=== PATIENT | male | born 1975 ===

== ENCOUNTER 2018-07-12 13:28 | Inpatient (IN) | payer OTHER ==
[2018-07-12 13:45] LABS: Base Excess (BEa) -3.8 mEq/L (-2.0 to +3.0); CO2 Tension 28.8 mmHg (35.0-45.0); Hemoglobin (Hb) 13.5 g/dL (14.0-18.0); O2 Tension (PaO2) 500.7 mmHg (80.0-100.0); pH, Arterial 7.44 (7.35-7.45)
[2018-07-12 13:46] LABS: Analyzer IN Cardio ER; Carboxyhemoglobin (COHb) 0.3 gm% (0.0-3.0); Potassium - ABG Lab 4.4 mmol/L (3.70-5.30); Puncture Site RRA
[2018-07-12 13:53] LABS: #Lymphocytes 0.4 thou/uL (1.20-3.40); #Monocytes 0.4 thou/uL (0.11-0.59); %Eosinophils 0.1 % (0.0-10.0); %Lymphocytes 3.8 % (21.0-51.0); %Monocytes 4.4 % (0.0-10.0); %Neutrophils 91.7 % (42.0-75.0); Hemoglobin 13.2 g/dL (14.0-18.0); Mean Corpuscular HGB CONC 35.5 g/dL (32.0-36.0); Mean Corpuscular Hemoglobin 34.1 pg (27.0-31.0); Mean Corpuscular Volume 96.2 fL (78.0-98.0); Mean Platelet Volume 7.7 fL (7.4-10.4); Platelet Count 142 thou/uL (130-400); RBC Distribution Width 12.2 % (11.5-14.5); Red Blood Cell (RBC) Count 3.88 mill/uL (4.70-6.10); White Blood Cell (WBC) Count 9.8 thou/uL (4.8-10.8)
[2018-07-12 13:59] LABS: ALT (SGPT) 142 U/L (8-55); AST (SGOT) 91 U/L (5-34); Albumin 4.3 g/dL (3.5-5.0); Alkaline Phosphatase 78 U/L (40-150); Anion Gap 13 mmol/L (10-20); BUN (Urea Nitrogen) 12 mg/dL (8.9-20.6); Bilirubin, Total 0.8 mg/dL (0.2-1.2); Calc. Creatinine Clearance 0 mL/min (70-130); Calcium 8.4 mg/dL (7.8-10.44); Carbon Dioxide 20 mmol/L (22-29); Chloride 105 mmol/L (98-107); Estimated GFR-MDRD Greater than 90; Globulin 2.3 g/dL (2.4-3.5); Glucose 121 mg/dL (70-105); Potassium 4.2 mmol/L (3.5-5.1); Protein, Total 6.6 g/dL (6.0-8.3); Sodium 134 mmol/L (136-145)
[2018-07-12 14:00] LABS: INR-International Normal Ratio 1.1
--- NOTE | 2018-07-12 14:49 | RAD ---
CHEST 1 VIEW: Date: 07/12/18 HISTORY: Chest pain. COMPARISON: None. FINDINGS: Patient is intubated with endotracheal tube tip below the clavicles. Enteric tube tip in gastric body . Defibrillator pad projects over the right hemithorax. No pneumothorax. No acute osseous abnormality. IMPRESSION: Satisfactory position of the endotracheal and enteric tubes. POS: [facility]
[2018-07-12] MEDS ORDERED: niCARdipine 20MG in NaCl 200 ML BAG IVPB PRN (15:02)
[2018-07-12] MEDS ORDERED: CCU Electrolyte Replacement 1 EACH IVPB ONE (15:02)
[2018-07-12] MEDS ORDERED: Sodium Chloride 0.9% 1,000 ML IV SCH (15:15)
[2018-07-12 15:38] VITALS: BMI 22.6
[2018-07-12] MEDS ORDERED: CCU ELECTROLYTE REPLACEMENT PROTOCOL FS PRN (15:45)
[2018-07-12] MEDS ORDERED: Potassium Phosphate 12 MMOL in Sodium Chloride 0.9% 250 ML 250 ML IV PRN (15:45)
[2018-07-12] MEDS ORDERED: Potassium Chloride 40 MEQ in Premix Bag 1 BAG IVPB PRN (15:45)
[2018-07-12] MEDS ORDERED: Potassium Chloride 20 MEQ TAB PO PRN (15:45)
[2018-07-12] MEDS ORDERED: Magnesium Oxide 400 MG TAB PO PRN ×2 (15:45)
[2018-07-12] MEDS ORDERED: Potassium Phosphate 15 MMOL in Sodium Chloride 0.9% 250 ML 250 ML IV PRN (15:45)
[2018-07-12] MEDS ORDERED: Potassium Chloride 40 MEQ in Sodium Chloride 0.9% 250 ML 250 ML IVPB PRN (15:45)
[2018-07-12] MEDS ORDERED: Magnesium 2 GM/NS 0.9% 100 ML 2 GM in Premix Bag 1 BAG IVPB PRN (15:45)
[2018-07-12] MEDS ORDERED: Potassium Phosphate 9 MMOL in Sodium Chloride 0.9% 100 ML IVPB PRN (15:45)
[2018-07-12] MEDS ORDERED: niCARdipine HCl 25 MG in Sodium Chloride 0.9% 250 ML 240 ML IVPB SCH (16:00)
--- NOTE | 2018-07-12 16:05 | PRG ---
DATE OF SERVICE: 07/12/2018 SUBJECTIVE: Mr. Morris is a 43-year-old man. He evidently has a history of alcohol abuse. He was h aving headache, nausea and vomiting overnight and was found to be obtunded this morning. EMS was act ivated. He was a GCS 3 at the scene. He was intubated. On our exam, his pupils were midposition an d fixed. Head CT demonstrated a left cerebellar hemorrhage with extensive ventricular extension and casting of the ventricular system with obstructive hydrocephalus. He was given mannitol and transfer red to [place]. A ventriculostomy was placed with the release of significant high pressure CSF th at was bloody. He has been transferred to the ICU. I have updated his family. His prognosis remain s quite guarded.
[2018-07-12] MEDS: CEFAZOLIN/Water 2 GM/20 ML SYRINGE SLOW IVP SCH ×2 (16:27→21:34)
[2018-07-12] MEDS ORDERED: CEFAZOLIN/Water 2 GM/20 ML SYRINGE SLOW IVP SCH (16:30)
--- NOTE | 2018-07-12 17:36 | OP ---
NOTE: Modifier 57 should be added to this surgery as decision to operate was made on the day I saw t he patient. 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 PROCEDURE: Placement of right frontal external ventricular drain to treat hydrocephalus. DESCRIPTION OF PROCEDURE: After informed consent was obtained from the patient's and the emerge nt nature conveyed to them, the right frontal Adriane's point was identified. Hair was clipped in thi s region and sterilely cleansed, prepared, and draped. Proper patient pause and identification was c arried out. A small incision was made. The skull was perforated with a drillbit. The dura was open ed and the ventricular catheter placed with return of bloody CSF under high pressure. This was conne cted to the Donohue bag and set to 10 cm of water. The procedure was tolerated with no apparent compl ications. He was transferred to the ICU.
[2018-07-12 19:09] LABS: Sodium 144 mmol/L (136-145)
[2018-07-12 19:16] LABS: Bilirubin Negative (Negative); Blood, Urine Negative (Negative); Clarity CLEAR (Clear); Glucose, Urine (Dipstick) Negative (Negative); Leukocyte Negative (Negative); Nitrite Negative (Negative); Protein, Urine (Dipstick) Negative (Neg-Trace); Specific Gravity, Urine 1.003 (1.002-1.036); Urobilinogen 0.2 mg/dL (0.2-1.0); pH, Urine 6.5 (5.0-9.0)
[2018-07-12 21:18] LABS: Sodium 147 mmol/L (136-145)
[2018-07-12] MEDS ORDERED: CEFAZOLIN 2 GM in Sodium Chloride 0.9% 100 ML IVPB SCH (22:00)
[2018-07-12] MEDS: Sodium Chloride 0.9% 1,000 ML IV SCH (22:43)
[2018-07-13] MEDS ORDERED: Norepinephrine 8 MG/250 ML BAG IVPB PRN (02:26)
[2018-07-13 05:23] LABS: Anion Gap 12 mmol/L (10-20); BUN (Urea Nitrogen) 11 mg/dL (8.9-20.6); Calc. Creatinine Clearance 123 mL/min (70-130); Calcium 8.6 mg/dL (7.8-10.44); Carbon Dioxide 22 mmol/L (22-29); Chloride 118 mmol/L (98-107); Estimated GFR-MDRD Greater than 90; Glucose 85 mg/dL (70-105); Potassium 3.8 mmol/L (3.5-5.1); Sodium 148 mmol/L (136-145)
[2018-07-13] MEDS: CEFAZOLIN/Water 2 GM/20 ML SYRINGE SLOW IVP SCH ×2 (05:51→14:44)
[2018-07-13] MEDS: Sodium Chloride 0.9% 1,000 ML IV SCH (05:51)
--- NOTE | 2018-07-13 06:09 | CON ---
DATE OF CONSULTATION: 07/12/2018 Facundo Morris is an unfortunate male, who is having nausea and vomiting all night. Symptoms were felt to be secondary to a stomach bug. He was awake apparently, this morning, when his left, and when she came back, he was unresponsiv e, so an ambulance arrived, he was intubated and transferred to [facility]. He had a G lasgow Coma Score of 3 on arrival. He apparently had midposition pupils at that time. He had a cere bellar hemorrhage with ventricular blood and hydrocephalus. PAST MEDICAL HISTORY: Not reportedly remarkable for history of hypertension, but he was extremely hy pertensive in the ER at [facility], I am told. Apparently on no medications prior to this. FAMILY HISTORY: Unknown. PHYSICAL EXAMINATION: VITAL SIGNS: Blood pressures in the 90s systolic, heart rate is in the 70s, respiratory rate was 10. HEENT: Pupils are midposition and reactive. Sclerae is anicteric. He had no response to sternal ru b. He had no gag. He had no corneals. LUNGS: Clear. HEART: Regular rhythm. ABDOMEN: Soft, without masses. EXTREMITIES: Without clubbing, cyanosis, or edema. He is flaccid. LABORATORY AND X-RAY FINDINGS: Sodium was 134. His urine output seemed to be increasing, so we rech ecked sodium at 1847, it was 144, and then at 2052, it is 147. Urine specific gravity was 1.003, pH of 7.44, pCO2 of 20, pO2 of 500. Coags were normal. White count 9.3, hemoglobin 13.2, platelets 142 ,000. IMPRESSION: ?hypertensive bleed with ventricular extension hydrocephalus and probable herniation. 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 This is extremely poor prognostic indicator. Surgery is following. PLAN: We will continue to follow with them as well. Critical care time 40 minutes.
[2018-07-13 08:52] LABS: pH, Arterial 7.39 (7.35-7.45)
[2018-07-13 08:53] LABS: Actual Bicarbonate (HCO3a) 25.3 mEq/L (22-28); Base Excess (BEa) 0.1 mEq/L (-2.0 to +3.0); Carboxyhemoglobin (COHb) 0.7 gm% (0.0-3.0); Hemoglobin (Hb) 13.6 g/dL (14.0-18.0); O2 Tension (PaO2) 182.6 mmHg (80.0-100.0); Potassium - ABG Lab 3.7 mmol/L (3.70-5.30)
[2018-07-13 08:54] LABS: Puncture Site RRA
[2018-07-13 09:03] LABS: #Lymphocytes 0.9 thou/uL (1.20-3.40); #Monocytes 0.3 thou/uL (0.11-0.59); #Neutrophils 5.1 thou/uL (1.40-6.50); %Basophils 0.4 % (0.0-1.0); %Eosinophils 0.3 % (0.0-10.0); %Lymphocytes 14.7 % (21.0-51.0); %Monocytes 4.6 % (0.0-10.0); Hemoglobin 12.7 g/dL (14.0-18.0); Mean Corpuscular HGB CONC 34.1 g/dL (32.0-36.0); Mean Corpuscular Hemoglobin 33.9 pg (27.0-31.0); Mean Corpuscular Volume 99.3 fL (78.0-98.0); Mean Platelet Volume 7.7 fL (7.4-10.4); Platelet Count 139 thou/uL (130-400); RBC Distribution Width 12.6 % (11.5-14.5); Red Blood Cell (RBC) Count 3.76 mill/uL (4.70-6.10); White Blood Cell (WBC) Count 6.4 thou/uL (4.8-10.8)
[2018-07-13 12:08] VITALS: TEMP 97.4
--- NOTE | 2018-07-13 13:37 | PRG ---
DATE OF SERVICE: 07/13/2018 SUBJECTIVE: Unfortunately, Mr. Morris has made no neurological progress. His pupils remain 5 mm and nonreactive. He has no corneal responses. He does not have a cough or gag and he has no movements of his extremities to noxious stimuli. He does not trigger the ventilator. He has a GCS 3T and is o n no sedation. His EVD is clotted off. He has known diabetes insipidus. Head CT this morning demon strates loss of the jacinto white interface and complete effacement of the sulci and cisterns. CT perfu tracy demonstrates no supraclinoid carotid flow. In fact, there is no flow in the right internal mcfarlane tid artery, into the petrous or cavernous carotid sections, likely indicative of include occlusion. There is no perfusion of the infratentorial structures either as the vertebral arteries did not fill intradurally nor did the carotid arteries fill intradurally. I have met with his and explained the grave prognosis here and the fact that the patient has a condition that is not compatible with li fe. They wish that we proceed with formal brain and transplant.
--- NOTE | 2018-07-13 13:58 | CT ---
CTA HEAD WITH AND WITHOUT CONTRAST WITH PERFUSION EVALUATION: Date: 07/13/18 INDICATION: History of hypertensive hemorrhage with intraventricular extension. Reportedly the patient was imaged at an outside facility; reportedly [facility] in [place], [place]. COMPARISON: None. TECHNIQUE: Multiple CTA images were obtained of the head with and without IV contrast. Perfusion images were con structed from the raw data at a separate workstation. FINDINGS: There is prominent intraventricular hemorrhage. There is a large area of intraventricular hemorrhage centered in the fourth ventricle with likely some parenchyma hemorrhage in the left cerebellar hemisp here on image 7 of series 2. This focal collection measures 4.6 cm. There is subarachnoid extension w ith hemorrhage layered within the cortical sulci and along the tentorium. There is marked effacement of the basilar cisterns. There is marked effacement of the sulci along the cerebral convexities. Ther e is loss of the normal jacinto-white differentiation. There is a ventriculostomy catheter entering thro ugh a right frontal bur hole that projects into the anterior horn of the left lateral ventricle. On the CTA images, there is no flow within the right internal carotid artery beyond the C1 level. The left internal carotid artery is diminutive in size at the level of the skull base through its petrou s, precavernous, and cavernous sections. There is very minimal flow within the very diminutive appear ing MCAs and ACAs bilaterally. No apparent flow is seen within the supervisor drying and softening. There is no apparent flow wi thin the basilar system. There is some flow within the cervical vertebral arteries that diminishes al morgan their intracranial segments. On the perfusion weighted images, there is significant reduction in the blood flow through both cereb ral hemispheres. There is diminished blood volume in all visualized segments. There is prominent hete rogeneity of the mean transit time, which is nonspecific. The mastoid air cells are clear. Paranasal sinuses are clear. IMPRESSION: 1. Prominent intraparenchymal hemorrhage within the left cerebellar hemisphere with likely fourth ve ntricular extension. Hematoma in the posterior fossa measures 4.6 cm in size. There is intraventricul ar hemorrhage extending into the third and fourth ventricles. There is subarachnoid extension with bl ood seen along the tentorium. There is effacement of the cerebral sulci, as well as the basilar ciste rns. There is loss of the normal jacinto-white differentiation. Overall, the findings are concerning for cerebral brain due to hypoperfusion. There is no appreciably perfusion within the posterior ci rculation nor within the right internal carotid artery. There is very diminutive perfusion seen withi n the left internal carotid artery at the level of the skull base through the level of the supraclino id segment of the left ICA. There is very diminutive flow within the anterior circulation of the MCA and EMETERIO segments proximally. 2. Perfusion studies are slightly limited due to the flow dynamics. There is no appreciable blood fl ow documented. The blood volume is markedly diminished within both cerebral hemispheres. 3. To confirm cerebral brain , a nuclear medicine brain study is recommended for further evaluation. Findings called to Ruben Wayne at 1239 hours on 07/13/18. CODE CR. POS: [facility]
[2018-07-13 15:29] VITALS: BP 105/64
--- NOTE | 2018-07-13 17:40 | RAD ---
RADIOGRAPH CHEST 1 VIEW: 07/13/18 at 5:32 p.m. HISTORY: 43-year-old male status post intubation. COMPARISON: 07/12/18, 2:24 p.m. FINDINGS: There are no air space densities, pulmonary edema, pneumothorax, or cardiomegaly. The lateral costop hrenic angles are sharp. Endotracheal tube distal tip is in a slightly more inferior position, now ap proximately 3.5 cm superior to the scottie. NG tube remains. The defibrillation paddle is no longer pr esent. IMPRESSION: 1. No acute cardiopulmonary findings. 2. Endotracheal tube and esophagogastric tube. alvina [] POS: [facility]
--- NOTE | 2018-07-17 15:39 | DS ---
This is Ruben Wayne PA-C, dictating for Dr. Facundo Mccarthy. HISTORY O PRESENT ILLNESS: Mr. Morris presented to [facility] with exam. A hea d CT demonstrated left cerebellar hemorrhage with extensive ventricular extension and casting of vent ricular system with obstructive hydrocephalus. His neurologic exam was GCS 3T. The EVD was replaced and the patient overnight showed no clinical radiographic signs of improvement. He was then declare d brain and soon .
== END 2018-07-13 14:38 | disposition expired | DRG 24 ==
LOC: ERS 13:28 → CCU 14:47 → CDU 07-13 14:58
PROVIDERS: ADMIT Surgery; ATTEND Surgery
PROC: 009630Z Drainage of Cerebral Ventricle with Drainage Device, Percutaneous Approach (ICD-10-PCS; principal; 2018-07-12)
DX: I61.9 Nontraumatic intracerebral hemorrhage, unspecified (principal); G91.1 Obstructive hydrocephalus; R40.2431 Glasgow coma scale score 3-8, in the field [EMT or ambulance]; W06.XXXA Fall from bed, initial encounter; F10.10 Alcohol abuse, uncomplicated; I10 Essential (primary) hypertension
CPT/HCPCS: 0042T; 12002; 36415; 70496; 71045; 80048; 80053; 81003; 82805; 85025; 85610; 85730; 93005; 93010; 94002; 94003; 96374; G8990-GO-CN; G8991-GO-CN; J2597; J7050

== ENCOUNTER 2018-07-13 14:38 | Day surgery (SDC) | payer OTHER ==
[2018-07-13] MEDS ORDERED: Levothyroxine 100 MCG SDV SLOW IVP SCH (17:00)
[2018-07-13] MEDS ORDERED: Insulin Regular 300 UNITS/3 ML VIAL IVP SCH (17:00)
[2018-07-13] MEDS ORDERED: Dextrose 50% Abboject 50 ML SYRINGE SLOW IVP SCH (17:00)
[2018-07-13] MEDS ORDERED: Norepinephrine 8 MG/0.9% NS 250 ML IVPB SCH (17:00)
[2018-07-13] MEDS ORDERED: Vasopressin 20 UNIT in Sodium Chloride 0.9% 250 ML 250 ML IV SCH (17:00)
[2018-07-13] MEDS ORDERED: Albuterol Sulfate 2.5 mg/3 ml Neb NEB PRN (17:00)
[2018-07-13] MEDS ORDERED: Levothyroxine Sodium 400 MCG in Sodium Chloride 0.9% 100 ML IVPB SCH (17:00)
[2018-07-13] MEDS ORDERED: Phenylephrine 10 MG/NS 250 ML 250 ML IVPB SCH (17:00)
[2018-07-13] MEDS ORDERED: Naloxone HCl 2 mg/2 ml Syringe IV SCH (17:00)
[2018-07-13] MEDS ORDERED: methylPREDNISolone Sod Succ 2 gm/30 ml Vial IVP SCH (17:00)
[2018-07-13] MEDS ORDERED: 1/2 NS w/KCL 20 mEq 1,000 ML IV SCH (17:15)
[2018-07-13 17:50] LABS: Actual Bicarbonate (HCO3a) 22.9 mEq/L (22-28); Base Excess (BEa) -1.8 mEq/L (-2.0 to +3.0); CO2 Tension 38.8 mmHg (35.0-45.0); O2 Tension (PaO2) 124.2 mmHg (80.0-100.0); pH, Arterial 7.39 (7.35-7.45)
[2018-07-13 17:50] LABS: #Eosinphils 0.1 thou/uL (0.0-0.7); #Lymphocytes 0.9 thou/uL (1.20-3.40); #Monocytes 0.3 thou/uL (0.11-0.59); #Neutrophils 5.7 thou/uL (1.40-6.50); %Basophils 0.4 % (0.0-1.0); %Eosinophils 0.7 % (0.0-10.0); %Monocytes 4.3 % (0.0-10.0); %Neutrophils 81.7 % (42.0-75.0); Hemoglobin 14.3 g/dL (14.0-18.0); Mean Corpuscular HGB CONC 34.3 g/dL (32.0-36.0); Mean Corpuscular Hemoglobin 34.4 pg (27.0-31.0); Mean Platelet Volume 7.6 fL (7.4-10.4); Platelet Count 129 thou/uL (130-400); RBC Distribution Width 12.8 % (11.5-14.5); Red Blood Cell (RBC) Count 4.15 mill/uL (4.70-6.10)
[2018-07-13 17:51] LABS: Calcium, Ionized 1.22 mmol/L (1.12-1.30); Carboxyhemoglobin (COHb) 0.9 gm% (0.0-3.0); Hemoglobin (Hb) 14.3 g/dL (14.0-18.0); Potassium - ABG Lab 3.4 mmol/L (3.70-5.30); Puncture Site RRA
[2018-07-13 17:57] LABS: INR-International Normal Ratio 1.1; PTT 29.7 SEC (22.9-36.1); Prothrombin Time 14.5 SEC (12.0-14.7)
[2018-07-13 18:12] LABS: ALT (SGPT) 114 U/L (8-55); AST (SGOT) 162 U/L (5-34); Albumin 3.6 g/dL (3.5-5.0); Alkaline Phosphatase 68 U/L (40-150); Anion Gap 9 mmol/L (10-20); BUN (Urea Nitrogen) 9 mg/dL (8.9-20.6); Bilirubin, Direct 0.2 mg/dL (0.1-0.3); Bilirubin, Total 0.6 mg/dL (0.2-1.2); Calc. Creatinine Clearance 0 mL/min (70-130); Calcium 8.7 mg/dL (7.8-10.44); Carbon Dioxide 23 mmol/L (22-29); Chloride 120 mmol/L (98-107); Estimated GFR-MDRD Greater than 90; Gamma GT (GGT) 603 U/L (12-64); Globulin 2.4 g/dL (2.4-3.5); Glucose 92 mg/dL (70-105); Lipase 47 U/L (8-78); Magnesium 2.2 mg/dL (1.6-2.6); Potassium 3.5 mmol/L (3.5-5.1); Sodium 148 mmol/L (136-145)
[2018-07-13 18:14] LABS: Phosphorus 1.5 mg/dL (2.3-4.7); Troponin I 0.012 ng/mL (< 0.028)
[2018-07-13] MEDS: Phytonadione 10 MG/ML AMP SLOW IVP SCH ×2 (18:30→22:25)
[2018-07-13] MEDS: Sodium Chloride 0.45% 1,000 ML IV SCH (19:04)
[2018-07-13] MEDS: Albuterol Sulfate 2.5 mg/3 ml Neb NEB SCH ×2 (19:14→23:36)
[2018-07-13 21:12] VITALS: BMI 22.6
[2018-07-13] MEDS: CEFAZOLIN 1 GM in Sodium Chloride 0.9% 100 ML IVPB SCH (22:24)
--- NOTE | 2018-07-13 22:55 | PRG ---
DATE OF SERVICE: 07/13/2018 SUBJECTIVE: Mr. Morris had a physical exam consistent with clinical brain early this morning. He underwent cerebral CT angiogram which showed no flow via a loss of jacinto-white matter differentiation on his brain CT can also consistent with brain . It was not felt that an apnea test was necessary. He has been pronounced. OBJECTIVE: LUNGS: His lungs are clear today. HEART: Regular rhythm. ABDOMEN: Soft. EXTREMITIES: Without asymmetry. LABORATORY DATA: White count 7.0, hemoglobin 14.3, platelets 129. Sodium 148, potassium 3.5, chloride 120, bicarbonate 23, BUN 9, creatinine 0.75. A pH today 7.39, CO2 of 30, pO2 of 124 on 30%. Chest radiograph is normal. IMPRESSION: Clinical brain . He has been pronounced. The organ transplantation process has begun per family's request. Critical care time is minutes independent of the procedures performed. [facility]
[2018-07-13 23:15] LABS: Bilirubin Negative (Negative); Blood, Urine Moderate (Negative); Clarity CLEAR (Clear); Glucose, Urine (Dipstick) Negative (Negative); Leukocyte Negative (Negative); Nitrite Negative (Negative); Protein, Urine (Dipstick) Negative (Neg-Trace); Specific Gravity, Urine 1.037 (1.002-1.036); Urobilinogen 0.2 mg/dL (0.2-1.0)
[2018-07-13 23:17] LABS: Bacteria/HPF None Seen HPF (None Seen); Hyaline Casts/LPF 0-3 HYALINE CAST LPF (0-3 Hyaline); Pathc Cast-AUWi Flag 0.14 (0-2.49); Squamous Epithelial None Seen HPF (0-3); WBC/HPF 0-3 HPF (0-3)
[2018-07-14 00:12] LABS: #Lymphocytes 0.6 thou/uL (1.20-3.40); #Monocytes 0.3 thou/uL (0.11-0.59); #Neutrophils 7.8 thou/uL (1.40-6.50); %Eosinophils 0.2 % (0.0-10.0); %Lymphocytes 7.2 % (21.0-51.0); %Monocytes 3.8 % (0.0-10.0); %Neutrophils 88.9 % (42.0-75.0); Hemoglobin 14.4 g/dL (14.0-18.0); Mean Corpuscular HGB CONC 32.8 g/dL (32.0-36.0); Mean Platelet Volume 7.9 fL (7.4-10.4); Platelet Count 135 thou/uL (130-400); RBC Distribution Width 12.8 % (11.5-14.5); Red Blood Cell (RBC) Count 4.37 mill/uL (4.70-6.10); White Blood Cell (WBC) Count 8.8 thou/uL (4.8-10.8)
[2018-07-14 00:16] LABS: Actual Bicarbonate (HCO3a) 21.6 mEq/L (22-28); CO2 Tension 48.6 mmHg (35.0-45.0); O2 Tension (PaO2) 464.6 mmHg (80.0-100.0); pH, Arterial 7.27 (7.35-7.45)
[2018-07-14 00:17] LABS: Base Excess (BEa) -5.6 mEq/L (-2.0 to +3.0); Calcium, Ionized 1.27 mmol/L (1.12-1.30); Carboxyhemoglobin (COHb) 0.5 gm% (0.0-3.0); Potassium - ABG Lab 3.3 mmol/L (3.70-5.30); Puncture Site ALINE
[2018-07-14 00:18] LABS: INR-International Normal Ratio 1.2; PTT 29.7 SEC (22.9-36.1); Prothrombin Time 15.3 SEC (12.0-14.7)
[2018-07-14 00:33] LABS: ALT (SGPT) 115 U/L (8-55); AST (SGOT) 166 U/L (5-34); Albumin 3.9 g/dL (3.5-5.0); Alkaline Phosphatase 69 U/L (40-150); Anion Gap 9 mmol/L (10-20); BUN (Urea Nitrogen) 9 mg/dL (8.9-20.6); Bilirubin, Total 0.5 mg/dL (0.2-1.2); Calc. Creatinine Clearance 111 mL/min (70-130); Calcium 9.1 mg/dL (7.8-10.44); Carbon Dioxide 22 mmol/L (22-29); Chloride 122 mmol/L (98-107); Estimated GFR-MDRD Greater than 90; Globulin 2.5 g/dL (2.4-3.5); Glucose 119 mg/dL (70-105); Magnesium 2.1 mg/dL (1.6-2.6); Potassium 3.2 mmol/L (3.5-5.1); Protein, Total 6.4 g/dL (6.0-8.3); Sodium 150 mmol/L (136-145)
[2018-07-14 00:35] LABS: Phosphorus 1.6 mg/dL (2.3-4.7)
[2018-07-14] MEDS ORDERED: Magnesium 2 GM/NS 0.9% 100 ML 2 GM in Premix Bag 1 BAG IVPB SCH (01:15)
[2018-07-14] MEDS: niCARdipine HCl 25 MG in Sodium Chloride 0.9% 250 ML 240 ML IVPB PRN ×2 (01:17→06:24)
[2018-07-14 01:18] LABS: Actual Bicarbonate (HCO3a) 21.2 mEq/L (22-28); Base Excess (BEa) -4.7 mEq/L (-2.0 to +3.0); CO2 Tension 42.1 mmHg (35.0-45.0); Carboxyhemoglobin (COHb) 0.7 gm% (0.0-3.0); Hemoglobin (Hb) 14.6 g/dL (14.0-18.0); O2 Tension (PaO2) 405.9 mmHg (80.0-100.0); pH, Arterial 7.32 (7.35-7.45)
[2018-07-14 01:19] LABS: ALV-art Gradient 254.475 (0-20); Calcium, Ionized 1.26 mmol/L (1.12-1.30); Potassium - ABG Lab 3.3 mmol/L (3.70-5.30); Puncture Site ALINE
[2018-07-14 01:44] LABS: CO2 Tension 83.4 mmHg (35.0-45.0); O2 Tension (PaO2) 418.2 mmHg (80.0-100.0); pH, Arterial 7.09 (7.35-7.45)
[2018-07-14 01:45] LABS: Actual Bicarbonate (HCO3a) 24.9 mEq/L (22-28); Calcium, Ionized 1.29 mmol/L (1.12-1.30); Carboxyhemoglobin (COHb) 0.6 gm% (0.0-3.0); Hemoglobin (Hb) 15.2 g/dL (14.0-18.0); Potassium - ABG Lab 3.2 mmol/L (3.70-5.30); Puncture Site ALINE
[2018-07-14] MEDS: Potassium Chloride 20 MEQ in Premix Bag 1 BAG IVPB SCH ×3 (01:50→02:59)
[2018-07-14] MEDS ORDERED: Lactated Ringer's 500 ML IV SCH (02:15)
[2018-07-14] MEDS ORDERED: Lactated Ringer's 1,000 ML IV SCH (02:15)
[2018-07-14] MEDS: Sodium Chloride 0.45% 1,000 ML IV SCH (03:51)
[2018-07-14] MEDS: Albuterol Sulfate 2.5 mg/3 ml Neb NEB SCH ×2 (03:57→06:09)
[2018-07-14 04:50] VITALS: TEMP 98.6
[2018-07-14] MEDS: CEFAZOLIN 1 GM in Sodium Chloride 0.9% 100 ML IVPB SCH (05:10)
[2018-07-14 05:28] LABS: Bilirubin Negative (Negative); Blood, Urine Small (Negative); Clarity CLEAR (Clear); Glucose, Urine (Dipstick) 500 mg/dL (Negative); Leukocyte Negative (Negative); Nitrite Negative (Negative); Protein, Urine (Dipstick) Negative (Neg-Trace); Specific Gravity, Urine 1.017 (1.002-1.036); Urobilinogen 0.2 mg/dL (0.2-1.0)
[2018-07-14 05:30] LABS: Bacteria/HPF None Seen HPF (None Seen); Hyaline Casts/LPF 4-6 HYALINE CAST LPF (0-3 Hyaline); Pathc Cast-AUWi Flag 0.43 (0-2.49); RBC/HPF 0-3 HPF (0-3); Squamous Epithelial None Seen HPF (0-3); WBC/HPF 0-3 HPF (0-3)
[2018-07-14 05:45] LABS: Actual Bicarbonate (HCO3a) 17.4 mEq/L (22-28); Base Excess (BEa) -6.8 mEq/L (-2.0 to +3.0); CO2 Tension 31.8 mmHg (35.0-45.0); O2 Tension (PaO2) 477.6 mmHg (80.0-100.0); pH, Arterial 7.36 (7.35-7.45)
[2018-07-14 05:46] LABS: Carboxyhemoglobin (COHb) 0.6 gm% (0.0-3.0); Hemoglobin (Hb) 14.5 g/dL (14.0-18.0); Potassium - ABG Lab 3.6 mmol/L (3.70-5.30); Puncture Site ALINE
[2018-07-14 05:52] LABS: #Lymphocytes 0.4 thou/uL (1.20-3.40); #Monocytes 0.2 thou/uL (0.11-0.59); #Neutrophils 11.1 thou/uL (1.40-6.50); %Basophils 0.3 % (0.0-1.0); %Eosinophils 0.1 % (0.0-10.0); %Lymphocytes 3.2 % (21.0-51.0); %Neutrophils 94.3 % (42.0-75.0); Hemoglobin 14.1 g/dL (14.0-18.0); Mean Corpuscular HGB CONC 33.5 g/dL (32.0-36.0); Mean Corpuscular Hemoglobin 33.5 pg (27.0-31.0); Platelet Count 137 thou/uL (130-400); RBC Distribution Width 12.8 % (11.5-14.5); Red Blood Cell (RBC) Count 4.21 mill/uL (4.70-6.10); White Blood Cell (WBC) Count 11.8 thou/uL (4.8-10.8)
[2018-07-14 05:57] LABS: INR-International Normal Ratio 1.3; PTT 29.3 SEC (22.9-36.1); Prothrombin Time 16.1 SEC (12.0-14.7)
[2018-07-14 06:14] VITALS: BP 119/60
[2018-07-14 06:16] LABS: ALT (SGPT) 107 U/L (8-55); AST (SGOT) 135 U/L (5-34); Albumin 3.7 g/dL (3.5-5.0); Alkaline Phosphatase 67 U/L (40-150); Anion Gap 13 mmol/L (10-20); BUN (Urea Nitrogen) 7 mg/dL (8.9-20.6); Bilirubin, Total 0.3 mg/dL (0.2-1.2); Calc. Creatinine Clearance 97 mL/min (70-130); Calcium 8.6 mg/dL (7.8-10.44); Carbon Dioxide 18 mmol/L (22-29); Chloride 119 mmol/L (98-107); Estimated GFR-MDRD 88; Globulin 2.6 g/dL (2.4-3.5); Glucose 222 mg/dL (70-105); Magnesium 2.4 mg/dL (1.6-2.6); Phosphorus 3.7 mg/dL (2.3-4.7); Potassium 3.6 mmol/L (3.5-5.1); Protein, Total 6.3 g/dL (6.0-8.3); Sodium 146 mmol/L (136-145)
--- NOTE | 2018-07-14 07:46 | OP ---
DATE: 07/13/2018 PROCEDURE PERFORMED: Central line placement. PROCEDURE IN DETAIL: Right groin was shaved and prepped with chlorhexidine and Betadine. Femoral vein was easily cannulated with an introducer needle followed by J wire. A vein dilator was inserted. Triple lumen catheter was inserted and sewn in place x2. The catheter was flushed. The femoral artery was then cannulated with a 5-Egyptian introducer needle followed by J wire. A 5- Egyptian catheter was inserted and sewn in place x2. This connected to the arterial line with good waveform. Bronchoscopy was then performed via the endotracheal tube. Washings were taken in both lower lobes. The only abnormality seen endobronchially was a small white mucus plug in the left lower lobe medial bronchus. This was easily suctioned clear. Specimens were sent for Gram stain. Nothing suggestive of a purulent bronchitis or aspiration on bronchoscopy. [facility]
[2018-07-14] MEDS ORDERED: Potassium Chloride 40 MEQ in Premix Bag 1 BAG IVPB SCH (08:00)
--- NOTE | 2018-07-16 13:50 | EKG ---
Test Reason : Blood Pressure : / mmHG Vent. Rate : 071 BPM Atrial Rate : 071 BPM P-R Int : 168 ms QRS Dur : 104 ms QT Int : 466 ms P-R-T Axes : 041 067 045 degrees QTc Int : 506 ms Normal sinus rhythm Nonspecific ST abnormalty Prolonged QT Abnormal ECG Confirmed by JD FUNEZ ([id number]) on 07/16/2018 1:50:03 PM Referred By: Confirmed By:JD FUNEZ
== END 2018-07-14 08:41 | disposition short-term general hospital (02) ==
LOC: CCU 14:38 → SDC 14:38 → CDU 14:38 → SDC 07-14 08:41
PROC: 0B9F8ZX Drainage of Right Lower Lung Lobe, Via Natural or Artificial Opening Endoscopic, Diagnostic (ICD-10-PCS; principal; 2018-07-14)
PROC: 06HM3DZ Insertion of Intraluminal Device into Right Femoral Vein, Percutaneous Approach (ICD-10-PCS; principal; 2018-07-14)
PROC: 0B9J8ZX Drainage of Left Lower Lung Lobe, Via Natural or Artificial Opening Endoscopic, Diagnostic (ICD-10-PCS; principal; 2018-07-14)
PROC: 04HK3DZ Insertion of Intraluminal Device into Right Femoral Artery, Percutaneous Approach (ICD-10-PCS; principal; 2018-07-14)
DX: Z00.5 Encounter for examination of potential donor of organ and tissue (principal)
CPT/HCPCS: 36415; 81003; 81015; 82150; 82248; 82805; 82977; 83690; 83735; 84100; 86850; 86900; 86901; 87070; 87086; 93005; 93010; 94003; 94640; J0690; J1815; J2310; J2370; J2597; J2930; J3430; J3475; J3480; J7050; J7611